=== PATIENT | male | born 2000 | race Caucasian/White ===

== ENCOUNTER 2023-08-23 08:03 | Inpatient (IN) | payer BC ==
[2023-08-23] MEDS ORDERED: Ondansetron ODT 4 MG TAB PO PRN (09:31)
[2023-08-23] MEDS ORDERED: Ondansetron PF 4 MG/2 ML Vial IVP PRN (09:31)
[2023-08-23] MEDS ORDERED: hydrALAZINE 20 MG/ML VIAL SLOW IVP PRN (09:31)
[2023-08-23] MEDS ORDERED: Acetaminophen 325 MG TAB PO PRN (09:31)
[2023-08-23] MEDS: Sodium Bicarbonate 150 MEQ in Dextrose 5% in Water 1,000 ML IV SCH ×2 (10:19→12:05)
[2023-08-23 10:50] LABS: Anion Gap 12 mmol/L (10-20); BUN (Urea Nitrogen) 7 mg/dL (8.9-20.6); Calc. Creatinine Clearance 0 mL/min (70-130); Calcium 9.4 mg/dL (7.8-10.44); Carbon Dioxide 30 mmol/L (22-29); Chloride 105 mmol/L (98-107); Estimated GFR 127; Glucose 96 mg/dL (70-105); Potassium 3.7 mmol/L (3.5-5.1); Sodium 143 mmol/L (136-145)
[2023-08-23 11:41] LABS: CK (CPK) Greater than 42670 U/L (30-200)
[2023-08-23 12:54] VITALS: BMI 27.2
[2023-08-23] MEDS: Butalbital 50 MG/Aspirin 325 MG/Caffeine 40 MG CAPSULE PO PRN (14:11)
[2023-08-23] MEDS ORDERED: Sodium Bicarbonate 150 MEQ in Dextrose 5% in Water 1,000 ML IV SCH (17:31)
[2023-08-23 18:30] LABS: Bacteria/HPF None Seen HPF (None Seen); Bilirubin Negative (Negative); Blood, Urine Trace (Negative); Clarity Clear (Clear); Glucose, Urine (Dipstick) Normal (Negative); Ketone, Urine Negative (Negative); Leukocyte Negative Leu/uL (Negative); Nitrite Negative (Negative); Protein, Urine (Dipstick) Negative (Neg-Trace); RBC/HPF 0-3 HPF (0-3); Specific Gravity, Urine 1.007 (1.002-1.036); Squamous Epithelial None Seen HPF (0-3); Urobilinogen Normal mg/dL (Less than 2); WBC/HPF 0-3 HPF (0-3)
[2023-08-23] MEDS: Sodium Chloride 0.9% 1,000 ML IV SCH (20:00)
[2023-08-24 06:04] LABS: CK (CPK) 42149 U/L (30-200)
[2023-08-24 06:09] LABS: ALT (SGPT) 360 U/L (8-55); AST (SGOT) 1021 U/L (5-34); Albumin 3.2 g/dL (3.5-5.0); Alkaline Phosphatase 51 U/L (40-110); Anion Gap 8 mmol/L (10-20); BUN (Urea Nitrogen) 10 mg/dL (8.9-20.6); Bilirubin, Direct 0.3 mg/dL (0.1-0.3); Bilirubin, Total 0.8 mg/dL (0.2-1.2); Calc. Creatinine Clearance 235 mL/min (70-130); Calcium 8.7 mg/dL (7.8-10.44); Carbon Dioxide 27 mmol/L (22-29); Chloride 109 mmol/L (98-107); Estimated GFR 131; Globulin 2.3 g/dL (2.4-3.5); Glucose 92 mg/dL (70-105); Potassium 3.9 mmol/L (3.5-5.1); Protein, Total 5.5 g/dL (6.0-8.3); Sodium 140 mmol/L (136-145)
[2023-08-25 06:09] LABS: ALT (SGPT) 376 U/L (8-55); AST (SGOT) 835 U/L (5-34); Albumin 3.2 g/dL (3.5-5.0); Alkaline Phosphatase 56 U/L (40-110); Anion Gap 12 mmol/L (10-20); BUN (Urea Nitrogen) 11 mg/dL (8.9-20.6); Bilirubin, Direct 0.2 mg/dL (0.1-0.3); Bilirubin, Total 0.4 mg/dL (0.2-1.2); Calc. Creatinine Clearance 241 mL/min (70-130); Calcium 8.5 mg/dL (7.8-10.44); Carbon Dioxide 24 mmol/L (22-29); Chloride 109 mmol/L (98-107); Estimated GFR 132; Globulin 2.4 g/dL (2.4-3.5); Glucose 87 mg/dL (70-105); Potassium 3.8 mmol/L (3.5-5.1); Protein, Total 5.6 g/dL (6.0-8.3); Sodium 141 mmol/L (136-145)
[2023-08-25 06:14] LABS: Anion Gap 12 mmol/L (10-20); BUN (Urea Nitrogen) 11 mg/dL (8.9-20.6); Calc. Creatinine Clearance 238 mL/min (70-130); Calcium 8.6 mg/dL (7.8-10.44); Carbon Dioxide 24 mmol/L (22-29); Chloride 109 mmol/L (98-107); Estimated GFR 131; Glucose 87 mg/dL (70-105); Potassium 3.8 mmol/L (3.5-5.1); Sodium 141 mmol/L (136-145)
[2023-08-25 06:46] LABS: CK (CPK) 23861 U/L (30-200)
[2023-08-26 06:05] LABS: ALT (SGPT) 355 U/L (8-55); AST (SGOT) 580 U/L (5-34); Albumin 3.4 g/dL (3.5-5.0); Alkaline Phosphatase 64 U/L (40-110); Anion Gap 11 mmol/L (10-20); BUN (Urea Nitrogen) 10 mg/dL (8.9-20.6); Bilirubin, Direct 0.2 mg/dL (0.1-0.3); Bilirubin, Total 0.5 mg/dL (0.2-1.2); Calc. Creatinine Clearance 252 mL/min (70-130); Calcium 8.9 mg/dL (7.8-10.44); Carbon Dioxide 25 mmol/L (22-29); Chloride 110 mmol/L (98-107); Estimated GFR 133; Globulin 2.6 g/dL (2.4-3.5); Glucose 88 mg/dL (70-105); Potassium 3.8 mmol/L (3.5-5.1); Sodium 142 mmol/L (136-145)
[2023-08-26 06:29] LABS: CK (CPK) 12067 U/L (30-200)
[2023-08-26 06:32] LABS: Anion Gap 12 mmol/L (10-20); BUN (Urea Nitrogen) 10 mg/dL (8.9-20.6); Calc. Creatinine Clearance 241 mL/min (70-130); Calcium 8.8 mg/dL (7.8-10.44); Carbon Dioxide 25 mmol/L (22-29); Chloride 110 mmol/L (98-107); Estimated GFR 132; Glucose 87 mg/dL (70-105); Sodium 143 mmol/L (136-145)
[2023-08-26 07:44] VITALS: BP 102/65; TEMP 97.6
== END 2023-08-26 10:42 | disposition home or self-care (01) | DRG 558 ==
LOC: SURG A 08:05
PROVIDERS: ADMIT Internal Medicine; ATTEND Internal Medicine
DX: M62.82 Rhabdomyolysis (principal); R82.1 Myoglobinuria; R74.01 Elevation of levels of liver transaminase levels; R03.0 Elevated blood-pressure reading, without diagnosis of hypertension; Z79.899 Other long term (current) drug therapy; Z79.1 Long term (current) use of non-steroidal anti-inflammatories (NSAID)
CPT/HCPCS: 36415; 80048; 80076; 81001; 82550; 83874; J7050; J7070